=== PATIENT | female | born 1950 | race Caucasian/White ===

== ENCOUNTER 2016-12-08 11:44 | Outpatient (CLI) | payer OTHER, MEDICARE ==
--- NOTE | 2016-12-09 14:27 | DIAGNOSTIC IMAGING REPORT ---
PROCEDURE: MG BILATERAL SCREENING W/CAD INDICATION: Pain. Family history breast carcinoma (mother). TECHNIQUE: Bilateral CC and MLO digital views. COMPARISON: None available at this time. FINDINGS: Computer-aided detection applied. Mildly dense and nodular with dystrophic calcifications in the small normal axillary lymph nodes. No evidence of mass or suspicious calcification. IMPRESSION: 1. Probable negative mammogram. 2. Comparison with prior outside studies is recommended to confirm stability. These will be sent for. If and when these become available, an addendum can be issued this report. RESULT CODE: 0- Prior images needed. A. A negative report should not delay biopsy if a dominant or clinically suspicious mass is present. 10-15% of cancers are not identified by x-ray. B. A negative report may reinforce clinical impression. C. Adenosis and dense breasts may obscure an underlying neoplasm. D. False positive reports average 6-10%. E.. A yearly screening mammogram is recommended. A reminder letter will be scheduled.
== END 2016-12-08 23:00 ==
LOC: MAM SRH 11:44
DX: Z12.31 Encounter for screening mammogram for malignant neoplasm of breast (principal); Z80.3 Family history of malignant neoplasm of breast